=== PATIENT | male | born 1925 | race Caucasian/White ===

== ENCOUNTER → 2016-05-27 | Outpatient (CLI) | payer MEDICARE, BC ==
[2016-05-27 10:41] LABS: ASPARTATE AMINO TRANSFERASE 15 U/L (15-37); BLOOD UREA NITROGEN 21 mg/dL (7-18)
[2016-05-27 10:49] LABS: HEMOGLOBIN 16.4 g/dL (13.7-18.0)
== END | disposition home or self-care (01) ==
LOC: CFH 09:50
PROVIDERS: ATTEND Internal Medicine Hematology & Oncology
DX: Z51.11 Encounter for antineoplastic chemotherapy (principal); Z51.12 Encounter for antineoplastic immunotherapy; C43.61 Malignant melanoma of right upper limb, including shoulder; C77.3 Secondary and unspecified malignant neoplasm of axilla and upper limb lymph nodes; C78.7 Secondary malignant neoplasm of liver and intrahepatic bile duct; G31.84 Mild cognitive impairment of uncertain or unknown etiology; R22.43 Localized swelling, mass and lump, lower limb, bilateral; L30.9 Dermatitis, unspecified; R53.0 Neoplastic (malignant) related fatigue; M25.512 Pain in left shoulder
CPT/HCPCS: 36415; 80053; 84443; 85025